=== PATIENT | male | born 2000 | race Caucasian/White ===

== ENCOUNTER 2024-08-20 22:05 | Emergency (ER) | payer BC, SELFPAY ==
--- NOTE | ~2024-08-20 | XR_ITS ---
EXAM: XR foot LT min 3V DATE: 08/20/2024 22:16 HISTORY: dancing rolled L foot, lateral pain . COMPARISON: None available. FINDINGS: Normal mineralization. No fracture or dislocation. No lytic or blastic lesion. Severe robert ux valgus. Mild degenerative change at the first MTP joint. No erosion or periosteal change. Soft tis sues within normal limits. IMPRESSION: No acute osseous finding in the left foot. Reviewed, dictated and finalized at location K.
[2024-08-20 22:08] VITALS: BP 145/89; PULSE 106; RESP 18; TEMP 36.3; O2SAT 100
--- OUTSIDE RECORDS SUMMARY | 2024-08-20 23:21 | XMS_ITS | Clinical Summary ---
Author Organization [facility] Address [address] [place] [address] Phone Care Team Providers Care Speech And Language Specialist Name Role Phone LoreleiRobert Primary Care Provider Allergies No known active allergies Medications * This document contains information received from the source organization and may not represent a complete record from that organization. acetaminophen 325 mg tablet Take 325 mg by mouth Active ondansetron (ZOFRAN) 4 mg tablet Take 4 mg by mouth 2 Active adapalene-benzoy l peroxide (EPIDUO) 0.1-2.5 % topical gel 3 Active doxycycline monohydrate 100 mg tablet Take 100 mg by mouth 2 (two) times daily 3 Active omeprazole 20 mg delayed release capsule Take 20 mg by mouth every day Active clindamycin (CLINDAMAX) 1 % topical lotion SMARTSIG:Topic al Every Night 3 Active ketoconazole 2 % topical cream Apply topically to affected area 2 (two) times daily 4 Active fluvoxaMINE 100 mg tabletIndication s:MORENA (generalized anxiety disorder),Obsess yaritza-compulsive disorder, unspecified type Take 1 tablet (100 mg total) by mouth daily at bedtime 30 tablet 2 4 Active lamoTRIgine (LAMICTAL) 100 mg tabletIndication s:Episodic mood disorder (CMS-HCC) Take 1 tablet (100 mg total) by mouth every day 30 tablet 2 4 Active Active Problems Problem Noted Date Diagnosed Date Obsessive-compulsive disorder, unspecified type 09/21/2022 Episodic mood disorder 02/23/2022 MORENA (generalized anxiety disorder) 02/23/2022 Family History Medical History Relation Name Comments Anxiety Disorder Father Depression Father Anxiety Disorder Maternal Grandmother Depression Maternal Grandmother Anxiety Disorder Mother Depression Mother Anxiety Disorder Sister Depression Sister ADD/ADHD Negative Alcohol/Drug Negative Bipolar Disorder Negative Relation Name Status Comments Father Maternal Grandmother Mother Sister Social History Tobacco Use Types Packs/Day Years Used Date Smoking Tobacco: Never Smokeless Tobacco: Never Tobacco Cessation:Counseling Given: Not Answered Alcohol Use Standard Drinks/Week Comments Never 0 (1 standard drink = 0.6 oz pur e alcohol) Sex and Gender Information Value Date Recorded Sex Assigned at Not on file Legal Sex Male 1:29 PM CDT Gender Identity Male 02/23/2022 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 Sexual Orientation Bisexual 02/23/2022 9: 09 AM STEREO EQUIPMENT INSTALLER Last Filed Vital Signs Vital Sign Reading Time Taken Comments Blood Pressure 127/79 03/25/2024 10:01 AM STEREO EQUIPMENT INSTALLER Pulse 64 03/25/2024 10:01 AM STEREO EQUIPMENT INSTALLER Temperature - - Respiratory Rate - - Oxygen Saturation 98% 03/25/2024 10:01 AM STEREO EQUIPMENT INSTALLER Inhaled Oxygen Concentration - - Weight 74.5 kg (164 lb 2.1 oz) 03/25/2024 10:01 AM STEREO EQUIPMENT INSTALLER Height 182.9 cm (6') 03/25/2024 10:01 AM STEREO EQUIPMENT INSTALLER Body Mass Index 22.26 03/25/2024 10:01 AM STEREO EQUIPMENT INSTALLER Plan of Treatment Health Maintenance Due Date Last Done Comments Meningococcal B Vaccine (2 of 2 - Bexsero SCDM 2-dose series) 03/12/2021 09/10/2020 Hepatitis B Vaccines (1 of 3 - 19+ 3-dose series) 2021 COVID-19 Vaccine ( season) 2023 03/22/2021, 07/04/2020, 06/13/2020 Influenza Vaccine (Season Ended) 2024 03/03/2020, 12/31/2018, 12/24/2018, Additional history exists Depression Screening 03/25/2025 03/25/2024, 11/15/2023, 04/17/2023, Additional history exists DTaP/Tdap/Td Vaccines (8 - Td or Tdap) 11/23/2033 11/24/2023, 09/03/2013, 09/20/2007, Additional history exists Pneumococcal Vaccines Aged Out 04/06/2004 , 02/12/2003, 2002, Additional history exists No longer eligible based on patient's age to complete this topic IPV Vaccines Completed 09/20/2007, 05/04, 2002, Additional history exists MMR Vaccines Completed 09/20/2007, 08/12/2003 Varicella Vaccines Completed 09/20/2007, 08/12/2003 Meningococcal Vaccine (ACWY) Completed 09/04/2018, 09/03/2013 HPV Vaccines Completed 10/01/2019, 07/2018, 10/13/2017 HIB Vaccines Aged Out No longer eligi ble based on patient's age to complete this topic Hepatitis A Vaccines Aged Out No long er eligible based on patient's age to complete this topic Rotavirus Vaccines Aged Out No longer eligible based on patient's age to complete this topic Insurance [facility] Commercial (POS, PPO, etc) Address: [facility] [address] [place] [address] [place] [employer] [facility] Cross Blue [employer] Commercial (POS, PPO, etc) Address: [place] [address] [facility] Cross Blue [employer] Commercial (POS, PPO, etc) Address: [address] [address] Care Teams Speech And Language Specialist Relationship Specialty Start Date End Date Robert Moseley DO [facility] [address] [place] [address] [place] [address] PCP - General Family Medicine 02/23/22
--- OUTSIDE RECORDS SUMMARY | 2024-08-20 23:21 | XMS_ITS | Encounter Summary ---
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
--- OUTSIDE RECORDS SUMMARY | 2024-08-20 23:21 | XMS_ITS | Clinical Summary ---
Author Organization [facility] Address [address] [place] [address] Phone Care Team Providers Care Component Design Engineer Name Role Phone Robert Moseley DO Primary Care Provider Allergies No known active allergies Medications sertraline (ZOLOFT) 25 MG Tablet Take 25 mg by mouth daily. Active sertraline (ZOLOFT) 50 MG Tablet Take 50 mg by mouth daily. Active acetaminophen (TYLENOL) 325 MG Tablet Take 325 mg by mouth every 4 hours as needed. Active ondansetron (ZOFRAN) 4 MG Tablet Take 1 Tablet by mouth every 8 hours as needed for Nausea - 1st line. 10 Tablet 03/21/2022 Active Active Problems No known active problems Immunizations Immunization Administration Dates Next Due Covid-19, Mrna, Lnp-s, Pf, 3 0 Mcg/0.3 Ml Dose (Fooducate) 07/04/2020,06/13/2020 Human Papillomavirus (HPV) 9 -valent Vaccine 10/01/2019,09/04/2018,10/13/2017 Influenza Vaccine Nasal 02/24/2015,02/22/2014 Influenza Vaccine greater than 3 yrs 12/31/2018 Influenza Vaccine, MDCK,quad rivalent, pres free 03/03/2020 Influenza, Injectable, Mdck,quadrivalent,with Preservative 05/05/2018 Influenza, Injectable, Quadrivalent 12/24/2018 Influenza, Seasonal, Injecta ble, Undefined 12/31/2018,04/13/2013 Meningococcal Group B OMV 09/10/2020 Meningococcal Vaccine 09/04/2018,09/03/2013 Pneumococcal Vaccine Peds - 7 Valent 07/2004,02/12/2003,2002,10/21 TDAP Vaccine 09/03/2013 Social History Tobacco Use Types Packs/Day Years Used Date Smoking Tobacco: Never Smokeless Tobacco: Never Alcohol Use Standard Drinks/Week Comments Never 0 (1 standard drink = 0.6 oz pur e alcohol) AUDIT-C Answer Date Recorded Frequency of Alcohol Consumption Never 04/07/2019 Average Number of Drinks Not on file 020 Frequency of Binge Drinking Not on file 08/2019 Sexually Active Control Partners Comments Never Sex and Gender Information Value Date Recorded Sex Assigned at Not on file Legal Sex Male 2:53 AM PEARL HAND Gender Identity Not on file Sexual Orientation Not on file Last Filed Vital Signs Vital Sign Reading Time Taken Comments Blood Pressure 123/61 03/21/2022 3:14 AM PEARL HAND Pulse 77 03/21/2022 3:14 AM PEARL HAND Temperature 36.4 C (97.5 F) 03/20/2022 11:35 PM PEARL HAND Respiratory Rate 16 03/21/2022 3:14 AM PEARL HAND Oxygen Saturation 99% 03/21/2022 3:14 AM PEARL HAND Inhaled Oxygen Concentration - - Weight 72.6 kg (160 lb) 03/20/2022 11:35 PM PEARL HAND Height 180.3 cm (5' 11 ) 03/20/2022 11:35 PM PEARL HAND Body Mass Index 22.32 03/20/2022 11:35 PM PEARL HAND Plan of Treatment Health Maintenance Due Date Last Done Comments Hepatitis C Virus (HCV) Screening 2002 Meningococcal B Immunization (2 of 2 - Bexsero SCDM 2-dose series) 03/12/2021 09/10/2020 SARS-COV-2 Immunization ( season) 2023 03/22/2021, 07/04/2020, 06/13/2020 Influenza Immunization (Season Ended) 2024 03/03/2020, 12/31/2018, 12/31/2018, Additional history exists Respiratory Syncytial Virus (RSV) Immunization (Adult) (1 - 1-dose 75+ series) 2077 Hepatitis B Immunization Completed 003, 2002, 2002 Pneumococcal Immunization Combined Aged Out 04/06/2004, 02/12/2003, 2002, Additional history exists No longer eligible based on patient's age to complete this topic Measles Mumps Rubella (MMR) Immunization Discontinued 09/20/2007, 08/12/2003 Polio (IPV) Immunization Discontinued 008, 05/13/2003, 2002, Additional history exists Varicella Immunization Discontinued 09/20/2007, 2003 Hepatitis A Immunization Discontinued 09/28/2012, 10/01 DTaP/Tdap/Td Immunization Discontinued 2013, 09/20/2007, 11/11/2003, Additional history exists Meningococcal Immunization (ACWY) Completed 09/04/2018, 09/03/2013 Human Papillomavirus (HPV) Immunization Completed 10/01/2019, 09/04/2018, 10/13/2017 Rotavirus Immunization Aged Out No lo nger eligible based on patient's age to complete this topic Insurance [facility] Care Teams Component Design Engineer Relationship Specialty Start Date End Date Robert Moseley DO [address] [place] [address] [address] [place] [id number] PCP - General Family Medicine 03/19/22
--- NOTE | 2024-08-20 23:48 | ED.LOWEXIN ---
HPI - Extremity Injury (Lower) General Chief Complaint: Extremity Injury, Lower Stated Complaint: L foot pain while dancing Time Seen by Provider: 08/20/24 22:58 History of Present Illness HPI Narrative: Patient was dancing/jumping around when he twisted his left foot; he has large swelling to his left foot, no pain or swelling to his ankle, he is able to bear weight but it does hurt Related Data Allergies Allergy/AdvReac Type Severity Reaction Status Date / Time No Known Allergies Allergy Verified 08/20/24 22:06 Review of Systems Review of Systems: All systems reviewed & are unremarkable except as noted in HPI and below Exam Narrative: EXAMINATION OF ORGAN SYSTEMS/BODY AREAS: Constitutional: Vital signs per nursing GENERAL:[No acute distress, non-toxic appearing.] HEAD: Normal with no signs of head trauma. EYES: EOMI, conjunctiva normal ENT: Hearing grossly intact LUNGS: Nonlabored breathing. HEART: [Regular rate and rhythm], intact DP pulse ABD: [Soft], [nontender to palpation] EXT: Normal range of motion, large contusion to side of left foot, no tenderness or swelling to either malleolus or ankle SKIN: [No rashes or lesions.] NEURO: [Alert and oriented x 3. No gross focal sensory or strength deficits.] PSYCH: Normal affect Course Vital Signs Vital signs: Vital Signs Temperature 97.3 F L 08/20/24 22:08 Pulse Rate 106 H 08/20/24 22:08 Respiratory Rate 18 08/20/24 22:08 Blood Pressure 145/89 H 08/20/24 22:08 Pulse Oximetry 100 08/20/24 22:08 Oxygen Delivery Room Air 08/20/24 22:08 Temperature 97.3 F L 08/20/24 22:08 Pulse Rate 106 H 08/20/24 22:08 Respiratory Rate 18 08/20/24 22:08 Blood Pressure 145/89 H 08/20/24 22:08 Pulse Oximetry 100 08/20/24 22:08 Oxygen Delivery Room Air 08/20/24 22:08 MDM - Extremity Injury (Lower) MDM Narrative Medical decision making narrative: MEDICAL DECISION MAKING AND COURSE IN THE ED WITH INTERPRETATION/REVIEW OF DIAGNOSTIC STUDIES: Electronic medical record was reviewed. This patient was seen by myself. Patient presented to the ED with complaint of [left foot pain after inversion injury]. Vitals [were within acceptable limits]. Physical exam revealed tenderness at [left foot, with swelling to the lateral aspect]. Normal nontender and non swollen ankle. Based on the patient's history and physical exam, I am concerned for fracture vs sprain. Patient declined pain meds and ice placed. Foot xrays were obtained showing no acute fracture. [place] wrap applied to injured extremity. Patient given strict return precautions if pain is worse or there is poor blood flow to the extremity, and advised to rest the limb and to followup with Podiatry as needed. Discharge Plan Discharge Clinical Impression: Injury of foot Patient Disposition: Home Condition: Stable Instructions: Foot Contusion (ED) Additional Instructions: Keep the foot elevated, try not to walk too much on it, use ice, and you can take ibuprofen and Tylenol for pain as needed. If you continue to have issues with your foot you can follow-up with the foot doctor or return to the ER. Patient Language: Georgian Follow-up/Referrals: Georgi Mcqueen Jr., SHAYM [Physician] - 1 Week PHYSICIAN NOT ON STAFF,NONSTAFF [Primary Care Provider] - Stand Alone Forms: Work/School Release IP
== END 2024-08-21 00:16 | disposition home or self-care (01) ==
PROVIDERS: Emergency Provider Emergency Medicine
DX: S99.922A Unspecified injury of left foot, initial encounter (principal); X50.9XXA Other and unspecified overexertion or strenuous movements or postures, initial encounter; Y93.41 Activity, dancing
CPT/HCPCS: 73630; 99283